=== PATIENT | male | born 1940 | race Caucasian/White ===

== ENCOUNTER → 2025-06-01 13:03 | Outpatient (REF) | payer MEDICARE, SELFPAY | LOC: RAD 13:03 | PROVIDERS: ATTENDING PHYSICIAN Internal Medicine | DX: I50.9 Heart failure, unspecified (principal) | CPT/HCPCS: 71046 ==

== ENCOUNTER → 2025-06-01 13:39 | Outpatient (REF) | payer MEDICARE, SELFPAY | LOC: MRI 13:39 | PROVIDERS: ATTENDING PHYSICIAN Internal Medicine | DX: M54.12 Radiculopathy, cervical region (principal) | CPT/HCPCS: 72141 ==